=== PATIENT | female | born 1955 | race Caucasian/White ===

== ENCOUNTER 2018-02-16 19:57 | Emergency (ER) | payer MEDICARE, MEDICAID ==
[2018-02-16 21:12] LABS: ANION GAP 14.1; CHLORIDE,CL 102 mmol/L (101-111); SODIUM,NA 138 mmol/L (135-145)
[2018-02-16] MEDS ORDERED: LORazepam 0.5 MG Tab PO PRN (22:16)
[2018-02-17] MEDS ORDERED: LORazepam 0.5 MG Tab PO PRN (06:15)
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
[2018-02-17 11:21] VITALS: BP 105/54
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
== END 2018-02-17 12:05 ==
LOC: DL.ED 19:57
DX: F25.0 Schizoaffective disorder, bipolar type (principal); F42.9 Obsessive-compulsive disorder, unspecified; E11.9 Type 2 diabetes mellitus without complications; Z79.82 Long term (current) use of aspirin; Z79.899 Other long term (current) drug therapy
CPT/HCPCS: 36415; 80053; 81001; 83605; 85025; A9270-GY

== ENCOUNTER 2021-05-30 07:47 | Emergency (ER) | payer MEDICARE, MEDICAID ==
--- NOTE | 2021-05-30 08:23 | EDM.PDOC ---
ED HPI GENERAL MEDICAL PROBLEM - General Stated Complaint: AMBULANCE Time Seen by Provider: 05/30/21 08:12 Source of Information: Reports: Patient, EMS, RN History Limitations: Reports: No Limitations - History of Present Illness INITIAL COMMENTS - FREE TEXT/NARRATIVE: This 65 yo female patient was brought to the ED from [facility] by [facility] due to a ground level fall. The patient reports she has had 2 falls in the past 2 days (most recent was just prior to the call for the ambulance). The patient reports she was feeling lightheaded before the falls. The patient reports she has lower back pain that has gotten worse due to the falls. The patient also reports she has had a cough for the past week. The patient has a history of diabetes, Schizophrenia, hypertension and developmental delay (according to hospital history). Onset: Today Duration: Constant Location: Reports: Back (lower back) Quality: Reports: Ache Severity: Moderate Improves with: Reports: None Worsens with: Reports: None Context: Reports: Activity (ground level fall) Associated Symptoms: Reports: Cough Lower Back Pain Score (Numeric/FACES): 9 - Related Data Allergies Allergy/AdvReac Type Severity Reaction Status Date / Time lithium Allergy Rash Verified 05/30/21 08:29 Home Meds: Home Meds Aspirin 81 mg PO DAILY 04/23/15 [History] Lisinopril 10 mg PO DAILY 04/23/15 [History] Simvastatin 20 mg PO BEDTIME 04/23/15 [History] fluvoxaMINE Maleate [Fluvoxamine Maleate ER] 100 mg PO BEDTIME 04/23/15 [History] metFORMIN [Glucophage] 1,500 mg PO QAM 04/23/15 [History] QUEtiapine Fumarate [Seroquel] 300 mg PO .1500 DAILY 10/18/15 [History] QUEtiapine Fumarate [Seroquel] 300 mg PO QAM 10/18/15 [History] QUEtiapine Fumarate [Seroquel] 900 mg PO BEDTIME 10/18/15 [History] Sennosides/Docusate Sodium [Senna-S Tablet] 1 each PO BID 10/23/15 [History] metFORMIN [Glucophage] 1,000 mg PO WITHDINNER 11/21/17 [History] ARIPiprazole [Abilify] 15 mg PO QAM 05/30/21 [History] Acetaminophen [Tylenol 8 Hour] 650 mg PO BID 05/30/21 [History] Escitalopram Oxalate 10 mg PO QAM 05/30/21 [History] Escitalopram [Lexapro] 10 mg PO DAILY 05/30/21 [History] Insulin Detemir [Levemir] 20 units SUBCUT BID 05/30/21 [History] Insulin Lispro [Humalog] 10 units SUBCUT ACDINNER 05/30/21 [History] Insulin Lispro [Humalog] 12 units SUBCUT ACLUNCH 05/30/21 [History] Insulin Lispro [Humalog] 15 units SUBCUT 6XDAY 05/30/21 [History] LORazepam [Ativan] 0.5 mg PO BID 05/30/21 [History] Past Medical History HEENT History: Reports: Impaired Vision Cardiovascular History: Reports: High Cholesterol Genitourinary History: Reports: UTI, Recurrent Musculoskeletal History: Reports: Osteoarthritis Other Neuro History: mental retardation Psychiatric History: Reports: Bipolar, OCD, Schizophrenia Endocrine/Metabolic History: Reports: Diabetes, Type II, Other (See Below) Other Endocrine/Metabolic History: vit b12 degicency Hematologic History: Reports: B12 Deficiency - Past Surgical History Female Surgical History: Reports: None Social & Family History - Family History Family Medical History: No Pertinent Family History - Caffeine Use Caffeine Use: Reports: Soda ED ROS GENERAL - Review of Systems Review Of Systems: Comprehensive ROS is negative, except as noted in HPI. ED EXAM,LOWER BACK PAIN/INJURY - Physical Exam Exam: See Below Exam Limited By: No Limitations General Appearance: Alert, WD/WN, Mild Distress, Obese Eye Exam: Bilateral Eye: EOMI, Normal Inspection, PERRL Ears: Normal External Exam, Normal Canal, Hearing Grossly Normal, Normal TMs Nose: Normal Inspection, Normal Mucosa, No Blood Throat/Mouth: Normal Inspection, Normal Lips, Normal Teeth, Normal Gums, Normal Oropharynx, Normal Voice, No Airway Compromise Head: Atraumatic, Normocephalic Neck: Normal Inspection, Supple, Non-Tender, Full Range of Motion Respiratory/Chest: No Respiratory Distress, Lungs Clear, Normal Breath Sounds, No Accessory Muscle Use, Chest Non-Tender Cardiovascular: Normal Peripheral Pulses, Regular Rate, Rhythm, No Edema, No Gallop, No JVD, No Murmur, No Rub GI/Abdominal: Other (Obese) (Female) Exam: Deferred Rectal (Female) Exam: Deferred Back Exam: Paraspinal Tenderness, Vertebral Tenderness (lower back) Extremities: Normal Inspection, Normal Range of Motion, Non-Tender, Normal Capillary Refill Neurological: Alert, Normal Mood/Affect, Normal Dorsiflexion, CN II-XII Intact, Normal Plantar Flexion, Normal Gait, Normal Reflexes, No Motor/Sensory Deficits, Oriented x 3 Psychiatric: Normal Affect, Normal Mood Skin Exam: Warm, Dry, Intact, Normal Color, No Rash Lymphatic: No Adenopathy #1 Interpretation EKG Date: 05/30/21 Time: 08:33 Rhythm: Other (Sinus tach) Rate (Beats/Min): 107 [place]: Normal P-Wave: Present QRS: Normal ST-T: Normal QT: Normal Comparison: No Change Course - Vital Signs Last Recorded V/S: Last Vital Signs Temp 99.2 F 05/30/21 09:16 Pulse 110 H 05/30/21 09:16 Resp 30 H 05/30/21 09:16 BP 101/67 05/30/21 09:16 Pulse Ox 91 L 05/30/21 09:16 - Orders/Labs/Meds Orders: Active Orders 24 hr Category Date Time Status REFLEX LACTIC ACID YES OR NO [CHEM] Routine Lab 05/30/21 09:06 Received UA RFX AKASH AND CULT IF INDIC [URIN] Urgent Lab 05/30/21 08:27 Ordered Labs: Laboratory Tests 05/30/21 05/30/21 05/30/21 Range/Units 08:45 08:45 08:45 WBC 10.8 H (5.0-10.0) 10^3/uL RBC 4.20 (4.2-5.4) 10^6/uL Hgb 11.9 L (12.0-16.0) g/dL Hct 38.2 (37.0-47.0) % MCV 91.0 (80-100) fL MCH 28.3 (27.0-34.0) pg MCHC 31.2 L (33.0-35.0) g/dL Plt Count 281 (150-450) 10^3/uL Neut % (Auto) 85.4 H (42.2-75.2) % Lymph % (Auto) 7.1 L (20.5-50.1) % Cole % (Auto) 7.1 (2-8) % Eos % (Auto) 0.2 L (1.0-3.0) % Baso % (Auto) 0.2 (0.0-1.0) % Add Manual Diff Yes Neutrophils % (Manual) 76 H (42-75) % Band Neutrophils % 7 % Lymphocytes % (Manual) 9 L (20-50) % Monocytes % (Manual) 7 (2-8) % Sodium 138 (136-145) mmol/L Potassium 4.8 (3.5-5.1) mmol/L Chloride 98 (98-107) mmol/L Carbon Dioxide 28 (21-32) mmol/L Anion Gap 16.8 H (7-13) mEq/L BUN 21 H (7-18) mg/dL Creatinine 1.06 H (0.55-1.02) mg/dL Est Cr Clr Drug Dosing TNP Estimated GFR (MDRD) 52 BUN/Creatinine Ratio 19.8 (No establ ref range) Glucose 263 H (70-99) mg/dL Lactic Acid 2.20 H* (0.56-1.39) mmol/L Calcium 8.8 (8.5-10.1) mg/dL Total Bilirubin 0.2 (0.2-1.0) mg/dL AST 29 (15-37) U/L ALT 34 (14-59) U/L Alkaline Phosphatase 99 (46-116) U/L Troponin I High Sens 13 (<=51) pg/mL Total Protein 7.2 (6.4-8.2) g/dL Albumin 3.2 L (3.4-5.0) g/dL Globulin 4.0 Albumin/Globulin Ratio 0.80 - Re-Assessments/Exams Free Text/Narrative Re-Assessment/Exam: 05/30/21 10:56 Nursing staff did get the patient up. The patient was able to ambulate with the use of the walker and felt confident that a walker would help her in her home. Departure - Departure Time of Disposition: 10:58 Disposition: Home, Self-Care 01 Condition: Fair Clinical Impression: Fall from ground level Low back pain Qualifiers: Chronicity: acute Back pain laterality: unspecified Sciatica presence: without sciatica Qualified Code(s): M54.50 - Low back pain, unspecified - Discharge Information *PRESCRIPTION DRUG MONITORING PROGRAM REVIEWED*: Not Applicable *COPY OF PRESCRIPTION DRUG MONITORING REPORT IN PATIENT BRIANA: Not Applicable Instructions: Fall Prevention in the Home, Adult, [id number], Chronic Back Pain, [id number] Forms: ED Department Discharge Care Plan Goals: The patient was advised of the examination, lab, x-ray and CT results during the visit. The patient was able to ambulate with confidence by using a walker. If the patient has any additional symptoms or concerns, the patient should either r eturn to the emergency department or visit her primary care facility. Sepsis Event Note (ED) - Focused Exam Vital Signs: Vital Signs Temp Pulse Resp BP Pulse Ox 05/30/21 09:16 99.2 F 110 H 30 H 101/67 91 L 05/30/21 08:19 99.2 F 110 H 30 H 101/67 92 L - My Orders Last 24 Hours: My Active Orders 05/30/21 08:27 UA RFX AKASH AND CULT IF INDIC [URIN] Urgent 05/30/21 09:06 REFLEX LACTIC ACID YES OR NO [CHEM] Routine - Assessment/Plan Last 24 Hours: My Active Orders 05/30/21 08:27 UA RFX AKASH AND CULT IF INDIC [URIN] Urgent 05/30/21 09:06 REFLEX LACTIC ACID YES OR NO [CHEM] Routine
--- NOTE | 2021-05-30 08:42 | PCM.SN.2 ---
- Free Text/Narrative Note: Anna Garcia is a 65-year-old resident of [facility]. She is being sent to the ER at the request of her family following a fall at [facility] this morning. Fell fell yesterday, 05/30/21, while carrying her laundry. A handle on her laundry basket broke, causing her to stumble, lose her balance and fall. She had difficulty getting up (due her weight and deconditioning) and staff were finally able to get up using a wooden chair. This morning she fell again when she got up and out of bed. She was found on the floor next to the bed. No head trauma, no LOC. Complaining of back pain. Blood sugar 257 (was not given her morning insulin prior to transfer). No vital signs available from nursing. Past Medical History: Morbid obesity (Wt 290 lbs, BMI 48.25). Schizoaffective disorder. Obsessive-compulsive disorder. Diabetes, type 2 (E11.9). Hypertension. Chronic back and left hip pain. Osteoarthritis. Dyslipidemia. Medications reconciled in [employer]. [place]: [place] CODE STATUS: DNR. DNI. Case discussed with ER Provider. Copies of most recent labs and blood sugars faxed to ED.
--- NOTE | 2021-05-30 08:55 | CR ---
PROCEDURE INFORMATION: Exam: XR Chest Exam date and time: 05/30/2021 8:31 AM Age: 65 years old Clinical indication: Cough; Additional info: Cough with dizziness TECHNIQUE: Imaging protocol: XR of the chest. Views: 1 view. COMPARISON: CR Chest 2V 05/11/2019 1:41 PM FINDINGS: Lungs: Unremarkable. No consolidation. Moderate rotation. Pleural spaces: Unremarkable. No pleural effusion. No pneumothorax. Heart/Mediastinum: Unremarkable. No cardiomegaly. Bones/joints: Unremarkable. IMPRESSION: No acute findings.
[2021-05-30] MEDS ORDERED: Lidocaine 1% 30 ML SDV INJECT ONE (09:02)
[2021-05-30 09:29] LABS: ANION GAP 16.8 mEq/L (7-13); CHLORIDE,CL 98 mmol/L (98-107); SODIUM,NA 138 mmol/L (136-145)
--- NOTE | 2021-05-30 10:33 | CT ---
PROCEDURE INFORMATION: Exam: CT Lumbar Spine Without Contrast Exam date and time: 05/30/2021 10:10 AM Age: 65 years old Clinical indication: Weakness; Additional info: Lower extremity weakness TECHNIQUE: Imaging protocol: Computed tomography images of the lumbar spine without contrast. Radiation optimization: All CT scans at this facility use at least one of these dose optimization techniques: automated exposure control; mA and/or kV adjustment per patient size (includes targeted exams where dose is matched to clinical indication); or iterative reconstruction. COMPARISON: CR Lumbar Spine 2 or 3V 09/05/2016 11:27 AM FINDINGS: Vertebrae: No acute fracture. Normal alignment. Discs/Spinal canal/Neural foramina: T12/L1: No acute abnormality. L1/L2: No acute abnormality. L2/L3: No acute abnormality. L3/L4: The normal foramina within normal limits for age. No disc protrusion or extrusion. Mild central disc bulging with spinal stenosis at 8.8 mm. L4/5: No disc protrusion or extrusion. Disc bulging slightly asymmetric to the right. Spinal stenosis at 8.2 mm. Normal foramina for age. L5/S1: Moderate degenerative disc disease with vacuum disc phenomenon. Mild posterior calcification of a small central disc protrusion. Spinal stenosis at 8 mm. Mild foraminal narrowing due to spurring on the right with mild to moderate foraminal narrowing on the left to spurring. Soft tissues: Unremarkable. IMPRESSION: Multilevel spinal stenosis. Calcification posteriorly of a small central disc protrusion. Normal foramina except for L5/S1, slightly worse on the left.
[2021-05-30 11:08] VITALS: BP 102/87; PULSE 105
== END 2021-05-30 11:09 | disposition home or self-care (01) ==
LOC: DL.ED 07:47
DX: M54.50 Low back pain, unspecified (principal); E78.00 Pure hypercholesterolemia, unspecified; M19.90 Unspecified osteoarthritis, unspecified site; E11.9 Type 2 diabetes mellitus without complications; Z79.82 Long term (current) use of aspirin; Z79.4 Long term (current) use of insulin; Z79.899 Other long term (current) drug therapy
CPT/HCPCS: 36415; 71045; 72131; 80053; 83605; 84484; 85025; 93005; 99285-25